=== PATIENT | female | born 1965 | race Caucasian/White ===

== ENCOUNTER 2019-04-26 11:23 | Emergency (ER) | payer MEDICARE, SELFPAY ==
[2019-04-26] VITALS (10 sets, daily range): BP systolic 140–181; BP diastolic 70–122; PULSE 71–81; RESP 6–24; TEMP 36.7; O2SAT 90–100
[2019-04-26 11:38] LABS: Glucose Point of Care 21 (65-105)
[2019-04-26] MEDS: DEXTROSE 50% 25 GM/50 ML SYRINGE IV PUSH (11:45)
--- NOTE | 2019-04-26 11:53 | PC.NURSE ---
Pt alert and talking immediately after receiving dextrose. A & O x3. States she has not ate since dinner yesterday evening but took her diabetic meds.
--- NOTE | 2019-04-26 12:10 | ECG_ITS ---
Measurements Intervals [place] Rate: 71 P: 55 [place]: 157 QRS: -2 QRSD: 90 T: 40 QT: 371 QTc: 403 Interpretive Statements SINUS RHYTHM VENTRICULAR PREMATURE COMPLEX BASELINE WANDER- I, II BORDERLINE ECG Electronically Signed On 04-26-2019 15:46:23 CDT by Jonah Garcia D.O.
[2019-04-26 12:26] LABS: Glucose Point of Care 121 (65-105)
[2019-04-26 12:30] LABS: Basophils Absolute Auto 0.1 K/mm3 (0.0-0.1); Basophils Percent Auto 0.5 % (0.2-1.2); Eosinophils Absolute Auto 0.1 K/mm3 (0-0.3); Eosinophils Percent Auto 0.5 % (0-4.4); Hematocrit 44.1 % (37.0-47.0); Hemoglobin 14.2 g/dL (12.0-15.0); Immature Granulocyte Absolute 0.06 K/mm3 (0.00-0.031); Immature Granulocyte Percent A 0.5 % (0-0.5); Lymphocytes Absolute Auto 2.22 K/mm3 (0.9-3.2); Lymphocytes Percent Auto 20.1 % (18.3-44.2); Mean Corpuscular HGB Conc 32.2 g/dl (32-36); Mean Corpuscular Hemoglobin 31.3 pg (26-34); Mean Corpuscular Volume 97.4 fl (80-100); Mean Platelet Volume 10.9 fl (7.4-10.4); Monocytes Percent Auto 8.6 % (2.6-8.5); Neutrophils Absolute Auto 7.7 K/mm3 (1.3-6.7); Neutrophils Percent Auto 69.8 % (45.5-73.1); Platelet Count Result 224 k/mm3 (150-375); Red Blood Count 4.53 M/mm3 (4.2-5.4); Red Cell Distribution Width 16.6 % (11.5-14.5); White Blood Count 11.1 K/mm3 (4.5-10.0)
[2019-04-26 12:44] LABS: Alanine Aminotransferase 19 U/L (4-35); Albumin Level 4.5 g/dL (3.5-5.1); Alkaline Phosphatase 43 U/L (38-126); Aspartate Amino Transferase 27 U/L (14-36); Bilirubin,Total 0.6 mg/dL (0.2-1.3); Blood Urea Nitrogen 15 mg/dL (7-17); Calcium 9.7 mg/dL (8.4-10.2); Carbon Dioxide 30 mmol/L (22-30); Chloride 100 mmol/L (98-107); Estimated CRCL calculation 77 ml/min; Estimated Glomerular Filt Rate > 60; Glucose 122 mg/dL (65-105); Potassium 4.2 mmol/L (3.4-5.0); Sodium 135 mmol/L (137-145)
[2019-04-26 12:55] LABS: Troponin I < 0.012 ng/mL (0.000-0.034)
--- NOTE | 2019-04-26 14:15 | ED.AMS ---
HPI - Altered Mental Status General Chief Complaint: Altered Mental Status Stated Complaint: AMS Time Seen by Provider: 04/26/19 11:48 Source: patient Mode of arrival: ambulatory Limitations: no limitations History of Present Illness HPI narrative: Patient presents with chief complaint of altered mental status while shopping with friends today. Patient states she is a diabetic and has been having issues over the past week with her blood sugars dropping very low. Patient states the last time this happened was 2 to 3 days ago and her blood sugar was 31. Patient states that she is on Levemir and Jardiance. She takes 15 units of Levemir at night.Patient states she is also been having intermittent chest pain. Patient states that she had chest pain sternally at approximately 1 AM this morning that resolved without any intervention. Patient denies any chest pain or shortness of breath at this time. Patient states she has been having these pains and discomforts over the past 4 to 5 months. Patient states that she has been evaluated by her [facility] consultant for the pain Dr Reza. She states that her primary care Dr. Talha Keller is also aware.She reports initially when it began 4 to 5 months ago when her and she was diagnosed with diabetes, Hypertension, anxiety and depression she had a thorough cardiac work-up performed without findings of abnormalities. Patient states that she also began smoking again after her .Patient states that she has not seen her [facility] since then but she saw her primary care 2 to 3 weeks ago. Related Data Home Medications Medication Instructions Recorded Confirmed empagliflozin [Jardiance] 10 mg PO QAM 04/26/19 insulin detemir U-100 [Levemir 15 unit SUBCUT HS 04/26/19 U-100 Insulin] Allergies Allergy/AdvReac Type Severity Reaction Status Date / Time No Known Allergies Allergy Verified 04/26/19 11:44 Review of Systems Review of Systems: Narrative: CONSTITUTIONAL: Denies fever, chills, or sweats. EYES: Denies visual changes, redness, or discharge. ENT: Denies rhinorrhea, congestion, sore throat, or otalgia. CARDIOVASCULAR: Denies chest pain presently, palpitations, or edema. RESPIRATORY: Denies cough or dyspnea. GASTROINTESTINAL: Denies abdominal pain, nausea, vomiting, or diarrhea. GENITOURINARY: Denies dysuria or hematuria. SKIN: Denies rash or itching. MUSCULOSKELETAL: Denies back pain, joint pain, or myalgia. NEUROLOGIC: Altered mental status now resolved Denies headache, numbness, dizziness, or weakness. PSYCHIATRIC: Denies anxiety or depression. Exam Narrative: Exam Narrative: GENERAL: Well-appearing, well-nourished.Diaphoretic but currently in no acute distress.Smiling and talking normally. HEAD: Normocephalic, atraumatic. EYES: PERRLA and EOMI. ENT: Nares clear, no rhinorrhea or epistaxis. Mucous membranes moist. Oropharynx without tonsillar hypertrophy exudate or other lesions. Bilateral TMs pearly anthony nonbulging NECK: Supple. No adenopathy or masses. No carotid bruits or JVD CHEST: Clear to auscultation. No respiratory distress. No wheezes rales or rhonchi HEART: Regular rate and rhythm. Normal peripheral pulses. ABDOMEN: Soft, nontender, nondistended, normal active bowel sounds. EXTREMITIES: Normal range of motion. No edema. SKIN: Warm, dry, no rash. NEURO: No focal deficits. Alert and oriented x3. PSYCH: Normal mood and affect. Course Course Emergency Course: Patien is alert and oriented. Patient denies any chest pain, shortness of breath or any other adverse symptoms. Patient denies any headache, changes in vision or hearing. Attending patient's blood work and waiting for consult with patient's PCP for further instructions on how to adjust patient's diabetic medications as she has had multiple instances of blood sugars in the 20s and 30s over the past few weeks. Vital Signs Vital signs: Vital Signs Temperature 98.1 F 04/26/19 11:30 Pulse Rat
== END 2019-04-26 15:43 | disposition home or self-care (01) ==
PROVIDERS: Physician Assistant; Emergency Provider Emergency Medicine
DX: E11.649 Type 2 diabetes mellitus with hypoglycemia without coma (principal); R07.9 Chest pain, unspecified; Z79.4 Long term (current) use of insulin; Z79.84 Long term (current) use of oral hypoglycemic drugs
CPT/HCPCS: 36415; 80053; 82948; 84484; 85025; 93005; 96374; 99284